=== PATIENT | male | born 1980 | race Caucasian/White ===

== ENCOUNTER → 2020-07-02 | Outpatient (CLI) | payer BC ==
[~2020-07-02] MED LIST: METHACHOLINE KIT (J7674) INH ONE
--- NOTE | 2020-07-03 06:46 | PFTRPT ---
Site: [facility], [address] [place], [address] ID: [id number] Name: AWILDA HERNANDEZ Visit Date: 07/02/2020 Second ID: [id number] Referring Doctor: Maynor Mcpherson MD Reviewing Doctor: Beka Cole MD Area Manager: Olesya ALMANZA RRT Age: 40 : 1980 Sex: Male Race: Height: 76.00 Inches Weight: 230.00 Lbs BSA: 2.35 Order IDs: [id number] Requested Test(s): <RESP-PFT.METH CHAL> Diagnosis: R05 puffs of albuterol for post bronchodilator. Review Status: Not Reviewed Pre-Bronch Post-Bronch Pred Actual %Pred Actual %Chng SPIROMETRY FVC (L) 6.39 6.50 101 6.59 1 FEV1 (L) 5.06 5.04 99 5.18 2 FEV1/FVC (%) 80 78 96 78 1 FEF 25% (L/sec) 8.97 9.06 100 10.16 12 FEF 50% (L/sec) 5.39 5.72 106 5.46 -4 FEF 75% (L/sec) 2.14 1.74 81 2.20 26 FEF 25-75% (L/sec) 4.65 4.51 97 4.75 5 FEF Max (L/sec) 11.62 9.33 80 10.32 10 FIVC (L) 5.55 4.96 -10 FIF 50% (L/sec) 5.29 6.88 130 5.48 -20 FIF Max (L/sec) 7.73 6.53 -15 Expiratory Time (sec) 6.58 4.22 -35 Back Extrap Vol (L) 0.18 0.26 43 Time To FEFmax (sec) 0.127 0.118 -7
== END ==
LOC: M CARPUL 14:42
PROVIDERS: ATTEND Allergy & Immunology Allergy
DX: R05 Cough (principal)
CPT/HCPCS: 94070; J7674

== ENCOUNTER → 2020-08-04 | Outpatient (CLI) | payer SELFPAY | LOC: M LABSMTC 08:16 | PROVIDERS: ATTEND Pediatrics | DX: Z20.828 Contact with and (suspected) exposure to other viral communicable diseases (principal) ==

== ENCOUNTER → 2022-05-07 | Outpatient (REF) | payer BC | LOC: M SFHCDERM 17:22 | PROVIDERS: ATTEND Physician Assistant | DX: D23.4 Other benign neoplasm of skin of scalp and neck (principal) ==